=== PATIENT | female | born 1935 | race Caucasian/White ===

== ENCOUNTER 2017-07-05 12:40 | Emergency (ER) | payer MEDICARE, OTHER ==
[~2017-07-05] VITALS: Ht 160 cm; Wt 81.6 kg
--- NOTE | 2017-07-05 12:49 | NUR ---
81/F PRESENT TO ER C/O LT ARM PAIN x TODAY @ 1215. EMS STATES PT WAS AT [facility] LUNCH AND STARTED COMPLAINING OF ARM PAIN. PT AWAKE, ALERT, OREINTED TO NAME ONLY, CONFUSED WITH DATE AND SITUATION. DENIES ANY FALL, NO OBVIOUS DEFORMITY NOTED. RADIAL PULSES PRESENT. SKIN WARM/DRY. PT ABLE TO FOLLOW SIMPLE COMMANDS, BUT FORGETS EASILY. RESP EVEN AND UNLABORED, IN NAD. PT SLOW TO RESPOND, BUT CLEAR, SOFT SPEECH HEARD. NOTED MORGAN UNDER THE BREAST REDNESS, RT MORE THAN LEFT, MAL ODOROUS. DTR AT BEDSIDE, REPORTS SHE HASNT BEEN PUITTING ANYTHING ON IT. DR MONTE INFORMED. HX: HTN MEDS: PT CANNOT RECALL
[2017-07-05] MEDS ORDERED: ACETAMINOPHEN EXTRA STRENGTH 500 MG TAB PO ONE (12:50)
[2017-07-05 12:52] VITALS: BP 188/89
--- NOTE | 2017-07-05 13:32 | NUR ---
PT IN CT SCAN AT THIS TIME.
[2017-07-05 13:50] LABS: BASOPHILS # (AUTO) 0.3 K/uL (0.00-0.22); BASOPHILS % (AUTO) 4.8 % (0.0-2.0); EOSINOPHILS # (AUTO) 0.1 K/uL (0-0.4); EOSINOPHILS % (AUTO) 1.5 % (0.0-4.0); HEMATOCRIT 38.2 % (36-48); HEMOGLOBIN 12.8 g/dL (12.0-16.0); LYMPHOCYTES # (AUTO) 1.2 K/uL (2.5-16.5); LYMPHOCYTES % (AUTO) 19.4 % (20.5-51.1); MEAN CORPUSCULAR HEMOGLOBIN 31 pg (27-31); MEAN CORPUSCULAR HGB CONC 34 g/dL (33-37); MONOCYTES # (AUTO) 0.6 K/uL (0.8-1.0); NEUTROPHILS # (AUTO) 4.2 K/uL (1.8-7.7); NEUTROPHILS % (AUTO) 65.3 % (42.2-75.2); PLATELET COUNT (AUTO) 152 K/uL (140-450); WHITE BLOOD COUNT (AUTO) 6.4 K/uL (4.8-10.8)
--- NOTE | 2017-07-05 14:01 | NUR ---
DTR AT BEDSIDE, REPORTS SHE HAS BEEN DOING PHYSICAL THERAPY AND THAT MIGHT BE THE CAUSE OF HER LEFT ARM GRADUAL INCREASE PAIN.
[2017-07-05 14:09] LABS: ALBUMIN 3.6 g/dL (3.4-5.0); ANION GAP 15.5 (8-16); ASPARTATE AMINOTRANSFERASE 15 U/L (15-37); CARBON DIOXIDE 28.2 mmol/L (21-32); CHLORIDE 106 mmol/L (98-107); GLUCOSE 104 mg/dL (74-106); POTASSIUM 3.7 mmol/L (3.5-5.1); SODIUM SERUM 146 mmol/L (136-145); TOTAL BILIRUBIN 0.5 mg/dL (0.0-1.0); UREA NITROGEN, BLOOD 19 mg/dL (7-18)
[2017-07-05 14:50] LABS: APPEARANCE,URINE CLEAR (CLEAR); BILIRUBIN,URINE NEGATIVE (NEGATIVE); BLOOD, URINE NEGATIVE (NEGATIVE); LEUKOCYTE ESTERASE ,URINE NEGATIVE (NEGATIVE); NITRITE, URINE NEGATIVE (NEGATIVE); PH,URINE 5.5 (5.0-9.0); UGLUCOSE NEGATIVE (NEGATIVE)
[2017-07-05 15:02] LABS: COLOR,URINE STRAW (YELLOW)
--- NOTE | 2017-07-05 15:50 | NUR ---
Patient discharged with v/s stable. Written and verbal after care instructions given and explained. Patient alert, oriented and verbalized understanding of instructions. Ambulatory with steady gait. All questions addressed prior to discharge. ID band removed. Patient advised to follow up with PMD. Rx of NYSTATIN, CLINDAMYCIN HYDROCHLORIDE 300MG given. Patient educated on indication of medication including possible reaction and side effects. Opportunity to ask questions provided and answered.
[2017-07-05 15:58] VITALS: BP 132/82
== END 2017-07-05 15:50 | disposition home or self-care (01) ==
LOC: MED 12:40
DX: M25.512 Pain in left shoulder (principal); B48.8 Other specified mycoses; L01.09 Other impetigo; E11.9 Type 2 diabetes mellitus without complications; I10 Essential (primary) hypertension
CPT/HCPCS: 36415; 70450; 71045; 73030; 80053; 81003; 82948; 84484; 85025; 93005; 99285; Q0092